=== PATIENT | male | born 1985 | race Caucasian/White ===

== ENCOUNTER 2019-04-01 11:56 | Emergency (ER) | payer OTHER | END 2019-04-01 12:33 | disposition home or self-care (01) | LOC: JERFT 11:56 ==

== ENCOUNTER 2021-11-02 19:01 | Emergency (ER) | payer OTHER ==
[2021-11-02 19:10] VITALS: BP 135/91; PULSE 86; TEMP 98; BMI 19.6
[2021-11-02] MEDS ORDERED: DEXAMETHASONE LIQUID 0.5 MG/5 ML PO ONE (19:48)
[2021-11-02] MEDS ORDERED: DEXAMETHASONE SOD PHOSPHATE 10 MG/1 ML VIAL ONE (19:51)
== END 2021-11-02 20:13 | disposition home or self-care (01) ==
LOC: JER 19:01 → JERFT 19:01 → JER 20:13
DX: K13.79 Other lesions of oral mucosa (principal)
CPT/HCPCS: 71046-TC-FY; 99283-25